=== PATIENT | female | born 1950 | race Caucasian/White ===

== ENCOUNTER 2017-01-12 20:32 | Emergency (ER) | payer OTHER ==
[~2017-01-12] VITALS: Ht 142.2 cm; Wt 64.5 kg
[~2017-01-12 20:32] MED LIST: AMLO5TAB4 PO; ATOR10TA65 PO; FAMO40TA52 PO; HYDR-762 PO; LOSA1TAB19 PO; ONDA4TAB35 PO
[2017-01-12 20:37] VITALS: Ht 142.2 cm; Wt 64.5 kg
[2017-01-12 23:25] VITALS: TEMP 97.4
--- NOTE | 2017-01-12 23:47 | RADRPT ---
PROCEDURE: CT BRAIN WITHOUT CONTRAST CLINICAL INDICATION: 66-year-old female with headaches. TECHNIQUE: The study was performed utilizing a GE [employer] VCT 64-slice CT scanner. Direct axia l sections were obtained from the foramen magnum to the vertex without the use of intravenous contra st material. Sagittal and coronal reformations were obtained. Automated exposure control and iterat melania reconstruction techniques were utilized for this examination. The images were viewed on a PACS workstation. CTD/vol = 90.0 mGy; Total Exam DLP = 630.2 mGy-cm. COMPARISON: None. FINDINGS: The ventricles have a normal size, shape and position. There is no evidence for mass effect or midl ine shift. There are no intracranial areas of abnormal attenuation. There is no evidence for acute intra or extra-axial blood. The bony calvarium is intact. The partially visualized paranasal sinuse s and mastoid air cells are without significant abnormal soft tissue. IMPRESSION: Unremarkable noncontrast CT scan of the brain. .Shane Shay MD, MD Date Time Electronically viewed and signed by .Shane Shay MD, MD on 01/12/2017 23:46 .M/
[2017-01-13 00:21] VITALS: RESP 20
--- NOTE | 2017-01-13 00:37 | ERD ---
ER Documentation Chief Complaint Date/Time DATE: 01/13/17 TIME: 00:36 Chief Complaint LEFT EYE RED AND PAINFUL SINCE YESTERDAY WITH HEADACHE HPI This is a pleasant 66-year-old female comes in with sudden onset of left eye redness when she sneezed. Patient has also noticed that she has had a mild headache. Denies any fevers or chills. Denies any focal neurological complaints. Denies any other current issues. ROS All systems reviewed and are negative except as per history of present illness. Medications Home Meds Active Scripts Ondansetron Hcl* (Zofran* ODT) 4 mg -ODT Tab.disper, 4 MG PO Q6 Y for NAUSEA AND /OR VOMITING, #30 TAB Prov:YOSEF NARANJO MD 07/19/15 Hydrocodone Bit-Acetaminophen* ([place]*) 10-325 Mg Tablet, 1 TAB PO Q6 Y for PAIN , #7 TAB Prov:YOSEF NARANJO MD 07/19/15 Reported Medications Atorvastatin Calcium (Atorvastatin Calcium) 10 Mg Tab, 10 MG PO HS, TAB 07/19/15 Amlodipine Besylate* (Norvasc*) 5 Mg Tablet, 5 MG PO QHS, TAB 07/19/15 Losartan-Hydrochlorothiazide (Losartan-HCTZ) 50-12.5 Mg Tab, 1 TAB PO DAILY, TAB 07/19/15 Famotidine* (Famotidine*) 40 Mg Tablet, 40 MG PO HS, TAB 07/19/15 Allergies Allergies: Coded Allergies: No Known Allergy (Unverified , 07/19/15) PMhx/Soc History of Surgery: No Anesthesia Reaction: No Hx Neurological Disorder: No Hx Respiratory Disorders: No Hx Cardiac Disorders: Yes (HTN, HLD) Hx Psychiatric Problems: No Hx Miscellaneous Medical Probl: No Hx Alcohol Use: No Hx Substance Use: No Hx Tobacco Use: No Smoking Status: Never smoker Physical Exam Vitals Vital Signs Date Time Temp Pulse Resp B/P Pulse Ox O2 Delivery O2 Flow Rate FiO2 01/13/17 00:21 54 20 212/89 98 Room Air 01/12/17 23:25 97.4 56 22 204/92 98 Room Air 01/12/17 20:37 98.0 63 16 218/100 99 Physical Exam Const: [] Head: Atraumatic Eyes: Left eye with obvious subconjunctival hemorrhage at 3 to 5 o'clock position. ENT: Normal External Ears, Nose and Mouth. Neck: Full range of motion..~ No meningismus. Resp: Clear to auscultation bilaterally Cardio: Regular rate and rhythm, no murmurs Abd: Soft, non tender, non distended. Normal bowel sounds Skin: No petechiae or rashes Back: No midline or flank tenderness Ext: No cyanosis, or edema Neur: Awake and alert Psych: Normal Mood and Affect Results 24 hrs Current Medications Medications (Trade) Dose Ordered Sig/Masoud Route PRN Reason Start Time Stop Time Status Last Admin Dose Admin Hydralazine HCl (Apresoline) 100 mg ONCE ONCE PO 01/12/17 23:30 01/12/17 23:31 DC 01/12/17 23:36 Clonidine (Catapres) 0.2 mg ONCE ONCE PO 01/13/17 00:30 01/13/17 00:31 DC 01/13/17 00:28 Procedures/MDM CT of head was negative Medical decision-making: This patient has some conjunctival hemorrhage likely secondary to elevated blood pressure. Pressures been treated here. She will be discharged home with hydralazine. Follow-up with PCP. Patient's blood pressure was elevated (>120/80) but appears stable without evidence of hypertension emergency or urgency. The patient was counseled about the risks of hypertension and urged to pursue outpatient monitoring and therapy within a week with their primary care physician. Departure Diagnosis: Primary Impression: Subconjunctival hemorrhage Laterality: left Qualified Code: H11.32 - Subconjunctival hemorrhage, left Additional Impression: Accelerated hypertension Condition: Stable BAKARI CORDOBA Jan 13, 2017 00:37
[2017-01-13] MEDS ORDERED: APR50 PO (00:39)
[2017-01-13 00:53] VITALS: BP 164/79; PULSE 55
== END 2017-01-13 00:58 | disposition home or self-care (01) ==
LOC: E/R 20:32
DX: H11.32 Conjunctival hemorrhage, left eye (principal); I10 Essential (primary) hypertension; R51 Headache
CPT/HCPCS: 70450

== ENCOUNTER 2017-06-05 12:31 | Emergency (ER) | payer OTHER ==
[~2017-06-05] VITALS: Ht 157.5 cm; Wt 65.0 kg
[~2017-06-05 12:31] MED LIST changes: +HYDR-3672 PO
[2017-06-05 12:37] VITALS: Ht 157.5 cm; Wt 65.0 kg
[2017-06-05] MEDS ORDERED: KETOROLAC 15 MG INJ IV STA (12:57)
[2017-06-05] MEDS ORDERED: SOD CHLORIDE 0.9% 1,000 ML IV STA (12:57)
[2017-06-05] MEDS ORDERED: ONDANSETRON 4 MG INJ IV STA (12:57)
--- NOTE | 2017-06-05 13:05 | ERD ---
ER Documentation Chief Complaint Date/Time DATE: 06/05/17 TIME: 13:03 Chief Complaint sent by PCP for abd pain x 5 days HPI Patient is a 66-year-old female who presents with left lower quadrant abdominal pain that she has had for 5 days. The pain is intermittent but sharp when it comes. She states she had a colonoscopy on May 23 she is not sure if it is related to that. She denies any fever. Denies any nausea or vomiting. Denies diarrhea. Denies any dysuria hematuria or frequency. Denies any change with food. ROS All systems reviewed and are negative except as per history of present illness. Medications Home Meds Active Scripts Cephalexin* (Keflex*) 500 Mg Capsule, 500 MG PO BID for 5 Days, CAP Prov:HOMER DIAZ PA-C 06/05/17 Hydralazine Hcl* (Hydralazine Hcl*) 50 Mg Tab, 50 MG PO Q6, #120 TAB Prov:BAKARI CORDOBA 01/13/17 Ondansetron Hcl* (Zofran* ODT) 4 mg -ODT Tab.disper, 4 MG PO Q6 Y for NAUSEA AND /OR VOMITING, #30 TAB Prov:YOSEF NARANJO MD 07/19/15 Hydrocodone Bit-Acetaminophen* ([place]*) 10-325 Mg Tablet, 1 TAB PO Q6 Y for PAIN , #7 TAB Prov:YOSEF ANRANJO MD 07/19/15 Reported Medications Atorvastatin Calcium (Atorvastatin Calcium) 10 Mg Tab, 10 MG PO HS, TAB 07/19/15 Amlodipine Besylate* (Norvasc*) 5 Mg Tablet, 5 MG PO QHS, TAB 07/19/15 Losartan-Hydrochlorothiazide (Losartan-HCTZ) 50-12.5 Mg Tab, 1 TAB PO DAILY, TAB 07/19/15 Famotidine* (Famotidine*) 40 Mg Tablet, 40 MG PO HS, TAB 07/19/15 Allergies Allergies: Coded Allergies: No Known Allergy (Unverified , 06/05/17) PMhx/Soc History of Surgery: No Anesthesia Reaction: No Hx Neurological Disorder: No Hx Respiratory Disorders: No Hx Cardiac Disorders: Yes (HTN, HLD) Hx Psychiatric Problems: No Hx Miscellaneous Medical Probl: No Hx Alcohol Use: No Hx Substance Use: No Hx Tobacco Use: No FmHx Family History: No diabetes Physical Exam Vitals Vital Signs Date Time Temp Pulse Resp B/P Pulse Ox O2 Delivery O2 Flow Rate FiO2 06/05/17 12:37 98.1 68 18 173/81 97 Physical Exam INITIAL VITAL SIGNS: Reviewed by me GENERAL: Awake, alert and oriented x 4, well appearing, nontoxic, speaking in full sentences. No acute distress NECK: Supple. No masses. Full range of motion. No meningismus. No midline tenderness. RESPIRATORY: Clear to auscultation bilaterally. Symmetric chest wall rise. No wheezing or rales. No accessory muscle use. CV: Regular rate and rhythm. No murmurs, rubs, or gallops. ABDOMEN: Soft, non-distended. Left lower quadrant abdominal pain. Negative [place]. Negative [place] point tenderness. No CVA tenderness bilaterally. No guarding. No rebound. : Deffered. EXTREMITIES: No clubbing or cyanosis. No edema. Moving all extremities normally. c Result Diagram: 06/05/17 1320 06/05/17 1320 Results 24 hrs Laboratory Tests Test 06/05/17 13:20 White Blood Count 6.910^3/ul Red Blood Count 4.6410^6/ul Hemoglobin 13.2g/dl Hematocrit 38.8% Mean Corpuscular Volume 83.6fl Mean Corpuscular Hemoglobin 28.4pg Mean Corpuscular Hemoglobin Concent 34.0g/dl Red Cell Distribution Width 13.6% Platelet Count 49588^3/UL Mean Platelet Volume 9.8fl Neutrophils % 49.1% Lymphocytes % 37.5% Monocytes % 10.3% Eosinophils % 2.2% Basophils % 0.6% Nucleated Red Blood Cells % 0.0/100WBC Neutrophils # 3.410^3/ul Lymphocytes # 2.610^3/ul Monocytes # 0.710^3/ul Eosinophils # 0.210^3/ul Basophils # 0.010^3/ul Nucleated Red Blood Cells # 0.010^3/ul Urine Color YELLOW Urine Clarity CLEAR Urine pH 5.0 Urine Specific Kake 1.023 Urine Ketones NEGATIVEmg/dL Urine Nitrite NEGATIVEmg/dL Urine Bilirubin NEGATIVEmg/dL Urine Urobilinogen NEGATIVEmg/dL Urine Leukocyte Esterase 2+Jordyn/ul Urine Microscopic RBC 6/HPF Urine Microscopic WBC 14/HPF Urine Hemoglobin 1+mg/dL Urine Glucose NEGATIVEmg/dL Urine Total Protein NEGATIVEmg/dl Sodium Level 146mmol/L Potassium Level 3.9mmol/L Chloride Level 103mmol/L Carbon Dioxide Level 27mmol/L Anion Gap 20 Blood Urea Nitrogen 19mg/dl Creatinine 0.73mg/dl Glucose Level 90mg/dl Calcium Level 9.6mg/dl Total Bilirubin 0.5mg/dl Direct Bilirubin 0.00mg/dl Indirect Bilirubin 0.5mg/dl Aspartate Amino Transf (AST/SGOT) 36IU/L Alanine Aminotransferase (ALT/SGPT) 52IU/L Alkaline Phosphatase 120IU/L Total Protein 8.3g/dl Albumin 4.7g/dl Globulin 3.60g/dl Albumin/Globulin Ratio 1.30 Lipase 155U/L Current Medications Medications (Trade) Dose Ordered Sig/Masoud Route PRN Reason Start Time Stop Time Status Last Admin Dose Admin Sodium Chloride (NS) 1,000 ml @ 1,000 mls/hr Q1H STAT IV 06/05/17 12:57 06/05/17 13:56 DC 06/05/17 13:23 Ondansetron HCl (Zofran Inj) 4 mg ONCE STAT IV 06/05/17 12:57 06/05/17 12:59 DC 06/05/17 13:23 Ketorolac Tromethamine (Toradol) 15 mg ONCE STAT IV 06/05/17 12:57 06/05/17 12:59 DC 06/05/17 13:23 Procedures/MDM 66-year-old female has left lower quadrant abdominal pain for the past 5 days. She is well-appearing in no distress. Patient's blood pressure was elevated (> 120/80) but appears stable without evidence of hypertension emergency or urgency. The patient was counseled about the risks of hypertension and urged to pursue outpatient monitoring and therapy within a week with their primary care physician. Otherwise her vital signs are within normal limits. She was given IV fluids, Zofran, and Toradol. Abdominal labs and CT scan were ordered. The differential diagnosis includes but is not limited to appendicitis, cholelithiasis, cholecystitis, pancreatitis, hepatitis, gastritis, peptic ulcer disease, bowel obstruction, diverticulitis, renal disease including stones, torsion, AAA, pyelonephritis, and others. Urine shows evidence of urinary tract infection otherwise workup including labs and CT is unremarkable. Patient was discharged with copies of all of her labs and CT report as well as prescription for Keflex. Patient counseled regarding my diagnostic impression and care plan. Prior to discharge all questions answered. Pt agrees with treatment plan and understands strict return precautions. Pt is instructed to follow up with primary care provider within 24-48 hours. Precautionary instructions provided including instructions to return to the ER if not improving or for any worsening or changing symptoms or concerns. Departure Diagnosis: Primary Impression: Cystitis Condition: Stable HOMER DIAZ PA-C Jun 05, 2017 13:05
[2017-06-05 13:41] LABS: BASOPHILS % 0.6 % (0.0-2.0); EOSINOPHILS # 0.2 10^3/ul (0.0-0.5); EOSINOPHILS % 2.2 % (0.0-7.0); HEMATOCRIT 38.8 % (37.0-47.0); HEMOGLOBIN 13.2 g/dl (12.0-16.0); LYMPHOCYTES # 2.6 10^3/ul (0.8-2.9); LYMPHOCYTES % 37.5 % (15.0-51.0); MEAN CORPUSCULAR HEMOGLOBIN 28.4 pg (29.0-33.0); MEAN CORPUSCULAR VOLUME 83.6 fl (82.0-101.0); MEAN PLATELET VOLUME 9.8 fl (7.4-10.4); MONOCYTE # 0.7 10^3/ul (0.3-0.9); MONOCYTES % 10.3 % (0.0-11.0); NEUTROPHIL # 3.4 10^3/ul (1.6-7.5); NEUTROPHILS % 49.1 % (39.0-77.0); PLATELET COUNT 311 10^3/UL (140-415); RED BLOOD COUNT 4.64 10^6/ul (4.20-5.40); RED CELL DISTRIBUTION WIDTH 13.6 % (11.5-14.5); WHITE BLOOD COUNT 6.9 10^3/ul (4.8-10.8)
[2017-06-05 13:48] LABS: ADD UMIC YES; UR ASCORBIC ACID 40 mg/dL (NEGATIVE); UR BILIRUBIN (Dip) NEGATIVE (NEGATIVE); UR BLOOD (Dip) 1+ mg/dL (NEGATIVE); UR CLARITY CLEAR (CLEAR); UR COLOR YELLOW (YELLOW); UR GLUCOSE (Dip) NEGATIVE (NEGATIVE); UR KETONES (Dip) NEGATIVE (NEGATIVE); UR LEUKOCYTE ESTERASE (Dip) 2+ Leu/ul (NEGATIVE); UR NITRITE (Dip) NEGATIVE (NEGATIVE); UR RBC 6 /HPF (0-5); UR SPECIFIC GRAVITY (Dip) 1.023 (1.003-1.030); UR TOTAL PROTEIN (Dip) NEGATIVE (NEGATIVE); UR UROBILINOGEN (Dip) NEGATIVE (NEGATIVE)
[2017-06-05 14:03] LABS: ALBUMIN 4.7 g/dl (3.3-4.9); ALBUMIN/GLOBULIN RATIO 1.3; BILIRUBIN,INDIRECT 0.5 mg/dl (0-1.1); BILIRUBIN,TOTAL 0.5 mg/dl (0.2-1.3); CALCIUM 9.6 mg/dl (8.4-10.2); CREATININE 0.73 mg/dl (0.44-1.00); POTASSIUM 3.9 mmol/L (3.5-5.1); TOTAL PROTEIN 8.3 g/dl (6.1-8.1)
--- NOTE | 2017-06-05 15:07 | RADRPT ---
PROCEDURE: CT Abdomen and Pelvis without contrast. CLINICAL INDICATION: Abdominal pain. Nausea. TECHNIQUE: CT scan of the abdomen and pelvis without contrast [facility] without [facility] contrast. Coronal and sagittal reformatted images were obtained from the axial source images. Images were reviewed on a high-resolution PACS workstation. One or more of the following does reduction techniques were used: Automated exposure control; adjustment of the mA an d/or kV according to patient size; use of the aorta of reconstruction technique. The total exam CTD I equals 9.77 mGy and the total exam DLP equals 551.48 mGy-cm. COMPARISON: None available. FINDINGS: There is a calcified granuloma in the right middle lobe. There is minimal basilar scarring or atele ctasis. Heart size is at the upper limits of normal. There is no pericardial effusion or pericardi al thickening. There is mild decreased attenuation of the hepatic parenchyma with subtle pericholecystic sparing co nsistent with fatty infiltration. The liver, spleen, and pancreas are otherwise normal given the li mitations of a noncontrast CT examination. The gallbladder is normal. The adrenal glands are normal. The kidneys without renal calculus or hydronephrosis. The aorta is of normal caliber. Atherosclerotic calcifications are present. There is no retroperito ava lymph node enlargment. There is no evidence of large or small bowel obstruction. A normal appendix is identified.. No fr ee fluid or fluid collections are identified. No inflammatory changes are seen. There is a small pe riumbilical hernia which contains only fat. The uterus is present. No enlarged pelvic sidewall lymph nodes are seen. The bladder is within norm al limits. No free fluid is identified. The inguinal regions are unremarkable. There are moderate degenerative change of the spine. The bones are otherwise intact. IMPRESSION: 1. No CT evidence of acute intra-abdominal or pelvic process. 2. Fatty infiltration of the liver. 3. Atherosclerotic vascular disease. 4. Small periumbilical hernia containing only fat. RPTAT: KK .Freddie Maynard MD, Date Time Electronically viewed and signed by .Freddie Maynard MD, MD on 06/05/2017 15:07 .Abdiel/
[2017-06-05] MEDS ORDERED: CEPH-443 PO (15:15)
== END 2017-06-05 15:32 | disposition home or self-care (01) ==
LOC: FTE 12:31
DX: N30.90 Cystitis, unspecified without hematuria (principal); I10 Essential (primary) hypertension
CPT/HCPCS: 36415; 74176; 80053; 81001; 83690; 85025; 96374; 96375; 99285; J1885; J2405; J7030